=== PATIENT | female | born 1985 | race Caucasian/White ===

== ENCOUNTER 2020-12-14 18:56 | Emergency (ER) | payer OTHER, SELFPAY ==
--- NOTE | ~2020-12-14 | XR_ITS ---
EXAMINATION: XR chest 1V portable 12/14/2020 19:27 INDICATION: Overdose PROCEDURE: 2 view chest COMPARISON: 06/27/2015 FINDINGS: The lungs are clear. The cardiomediastinal silhouette is within normal limits. There are no pleural effusions. There is no pneumothorax suspected. IMPRESSION: 1: NO ACUTE CARDIOPULMONARY DISEASE. Reviewed, dictated and finalized at location A. [facility]
[2020-12-14 19:00] VITALS: BP 124/78; PULSE 128; RESP 20; TEMP 36.3; O2SAT 98
[2020-12-14 19:15] VITALS: PULSE 113; RESP 23
[2020-12-14 19:16] VITALS: BP 120/95; PULSE 119; RESP 27; O2SAT 90
[2020-12-14 19:17] VITALS: BP 122/86; PULSE 114; RESP 24; O2SAT 92
--- NOTE | 2020-12-14 19:53 | ED.OVERDOSE ---
HPI - Overdose General Chief Complaint: Overdose <Rajesh Hernandez MD - Last Filed: 12/14/20 20:08> Stated Complaint: Overdose <Rajesh Hernandez MD - Last Filed: 12/14/20 20:08> Time Seen by Provider: 12/14/20 19:02 <Rajesh Hernandez MD - Last Filed: 12/14/20 20:08> History of Present Illness HPI Narrative: Patient is a 35-year-old female who presents ER with opiate overdose. Patient received 4 mg Narcan for reversal. She received 2 mg IM and 2 mg IO. After reversal patient reports that she was recently discharged on 12/03/2020 from [facility]. There she was diagnosed with influenza pneumonia as well as a pulmonary embolism. She reports that since her discharge she has been oxygen dependent on 2 to 3 L of oxygen at baseline. She reports night she use a small amount of fentanyl that was able to fill one of her fingernails, she then injected it intramuscularly in her right arm. Intraosseous line and reversal drugs given by Dr. Newman. <Rajesh Hernandez MD - Last Filed: 12/14/20 20:08> Related Data Home Medications: Home Medications Medication Instructions Recorded Confirmed clonidine HCl 0.1 mg PO BID 12/14/20 12/14/20 divalproex 125 mg PO Q8H 12/14/20 12/14/20 famotidine 20 mg PO DAILY 12/14/20 12/14/20 gabapentin 100 mg PO BID 12/14/20 12/14/20 olanzapine 10 mg PO BID 12/14/20 12/14/20 trazodone 12/14/20 <Rajesh Hernandez MD - Last Filed: 12/14/20 20:08> Allergies/Adverse Reactions: Allergies Allergy/AdvReac Type Severity Reaction Status Date / Time No Known Allergies Allergy Verified 12/14/20 19:31 <Rajesh Hernandez MD - Last Filed: 12/14/20 20:08> Review of Systems Review of Systems: All systems reviewed & are unremarkable except as noted in HPI and below <Rajesh Hernandez MD - Last Filed: 12/14/20 20:08> Constitutional: Constitutional: Denies chills, Denies fever(s) and Denies weakness <Rajesh Hernandez MD - Last Filed: 12/14/20 20:08> ENT: Denies nasal congestion and Denies sore throat <Rajesh Hernandez MD - Last Filed: 12/14/20 20:08> Cardiovascular: Cardiovascular: Denies chest pain and Denies radiating jaw, neck or arm pain <Rajesh Hernandez MD - Last Filed: 12/14/20 20:08> Respiratory: Respiratory: Denies cough, Denies dyspnea and Denies wheezing <Rajesh Hernandez MD - Last Filed: 12/14/20 20:08> Gastrointestinal: Gastrointestinal: Denies abdominal pain, Denies nausea and Denies vomiting <Rajesh Hernandez MD - Last Filed: 12/14/20 20:08> Musculoskeletal: Musculoskeletal: Denies back pain, Denies joint swelling and Denies muscle cramps <Rajesh Hernandez MD - Last Filed: 12/14/20 20:08> PMFSH Past Medical History Medical History: Medical History (Updated 12/15/20 @ 00:00 by Eyal Grace) Chronic respiratory failure with hypoxia, on home O2 therapy Pulmonary embolism <Rajesh Hernandez MD - Last Filed: 12/14/20 20:08> Surgical History Surgical History: Surgical History (Updated 12/14/20 @ 19:59 by Rajesh Hernandez MD) No pertinent past surgical history <Rajesh Hernandez MD - Last Filed: 12/14/20 20:08> Social History Social History: Social History (Updated 12/14/20 @ 19:59 by Rajesh Hernandez MD) Substance use type: opiates and IV drugs Gender identity (if verbalized by the patient): Female <Rajesh Hernandez MD - Last Filed: 12/14/20 20:08> Exam Narrative: Exam Narrative: GENERAL: Chronically ill-appearing, well-nourished, and in no acute distress. HEAD: Normocephalic, atraumatic. EYES: PERRL and EOMI. ENT: Mucous membranes moist. CHEST: Rhonchi in the bases bilaterally. No respiratory distress. Bandage over the right chest wall from subclavian catheter placement at previous hospital. HEART: Tachycardic and regular. Normal peripheral pulses. ABDOMEN: Soft, nontender, nondistended. EXTREMITIES: Normal range of motion. No edema. Left tibial intraosseous line. SK
--- NOTE | 2020-12-14 20:08 | PC.NURSE ---
pt requesting to leave, pt is a/o x4 provider aware. pt to be discharged AMA PT AWARE OF POSSIBLE OUTCOMES OF HER DECISON AND IS AGREEABLE
== END 2020-12-14 20:15 | disposition left against medical advice (07) ==
PROVIDERS: Emergency Provider Emergency Medicine
DX: T40.601A Poisoning by unspecified narcotics, accidental (unintentional), initial encounter (principal); Z86.711 Personal history of pulmonary embolism; J96.11 Chronic respiratory failure with hypoxia; Z99.81 Dependence on supplemental oxygen
CPT/HCPCS: 36680; 71045; 99283; J2310